=== PATIENT | male | born 1995 | race Caucasian/White ===

== ENCOUNTER 2018-03-30 01:53 | Emergency (ER) | payer OTHER ==
[~2018-03-30] VITALS: Ht 167.6 cm; Wt 65.3 kg
[2018-03-30 02:00] VITALS: TEMP 36.8; Ht 167.6 cm; Wt 65.3 kg
--- NOTE | 2018-03-30 02:01 | EMERGENCY ROOM VISIT NOTE ---
History Report prepared by Sarah: Jesús Norwood Under the Supervision of: Dr. Tanya Kerr D.O. First contact with patient: 01:56 Stated Complaint: ALCOHOL History of Present Illness The patient is a 23 year old male who presents to the Emergency Room with complaints of an episode of alcohol intoxication occurring tonight. Per EMS, the patient was stopped by [employer] [facility]. He notes that the patient appeared visibly intoxicated and he reports that the patient seemed like he was going to fall down because he was leaning backwards as he was walking. He states that police attempted to have the patient call a sober friend, but notes that the patient was only able to stare at his phone screen without calling any friends. He notes that he has been in the emergency department before for alcohol intoxication. He denies any drug use and trauma tonight. HPI limited secondary to alcohol intoxication. Source of History: patient, EMS History Limited By: intoxication (alcohol) Onset: tonight Position: other (global) Quality: other (alcohol intoxication) Timing: other (an episode) Note: The patient denies any trauma. Review of Systems ROS limited secondary to alcohol intoxication. Past Medical & Surgical Medical Problems: (1) No chronic problems Family History No pertinent family history Social History Smoking Status: Never Smoker Alcohol Use: heavy Marital Status: single Housing Status: lives with roommate Occupation Status: [employer] student Current/Historical Medications Unable to Obtain Active Prescriptions or Reported Meds Allergies Coded Allergies: No Known Allergies (Unverified , 08/06/16) Physical Exam Vital Signs Date Time Temp Pulse Resp B/P (MAP) Pulse Ox O2 Delivery O2 Flow Rate FiO2 03/30/18 06:53 88 17 115/68 97 03/30/18 06:14 90 17 115/68 97 Room Air 03/30/18 05:45 99 03/30/18 05:00 84 14 109/62 94 Room Air 03/30/18 04:00 103 16 118/64 98 Room Air 03/30/18 03:00 95 14 128/67 97 Room Air 03/30/18 02:30 59 03/30/18 02:01 100 03/30/18 02:00 36.8 101 12 126/89 96 Room Air 03/30/18 02:00 Room Air Physical Exam General: Cooperative, smells of alcohol. HEENT: Head - normocephalic and atraumatic Pupils are 8mm and sluggishly reactive. Extraocular eye muscles are intact, and sclera are anicteric. Nose - moist nasal mucosa without discharge. Mouth - moist buccal mucosa. Oropharynx is nonerythematous and there is no tonsillar exudate or edema noted. Neck: Supple; no JVD, nuchal rigidity, cervical lymphadenopathy. Heart: Regular rhythm and tachycardic. There is a normal S1 and S2 with no murmurs, clicks, or gallops appreciated. Lungs: Clear to auscultation bilaterally with no wheezes, rales, or rhonchi. Abdomen: Soft, completely nontender, nondistended, with good bowel sounds. There are no palpable pulsatile masses or hepatosplenomegaly. There is no guarding, rigidity, or rebound noted. Extremities: No evidence of cyanosis, clubbing, or edema. There are easily palpable peripheral pulses. Skin: warm and dry with good turgor and no rashes. Medical Decision & Procedures Laboratory Results 03/30/18 02:12 Test 03/30/18 02:12 Anion Gap 7.0 mmol/L (3-11) Est Creatinine Clear Calc Drug Dose 88.6 ml/min Estimated GFR () 100.6 Estimated GFR (Non- 86.8 BUN/Creatinine Ratio 16.2 (10-20) Calcium Level 8.5 mg/dl (8.5-10.1) Ethyl Alcohol mg/dL 272.0 mg/dl (0-3) Laboratory results per my review. Medications Administered Medications (Trade) Dose Ordered Sig/Paco Route Start Time Stop Time Status Last Admin Dose Admin Potassium Chloride (Klor-Con M10) 20 meq STK-MED ONCE .ROUTE 03/30/18 06:06 03/30/18 06:07 DC 03/30/18 06:12 20 MEQ Procedure Potassium Chloride 20meq PO ED Course 0153: Past medical records reviewed. The patient was evaluated in room A11. A complete history and physical exam was performed. The patient was placed in the prone position to avoid aspiration. They were observed on the cardiac/vascular sonographer and pulse oximeter. Labs were drawn as above 0525: Potassium Chloride 20meq PO 0340: I reevaluated the patient. He is sound asleep and is hemodynamically stable. 0612: I rechecked the patient. He is currently getting his potassium and is trying to call a sober friend. 0646: I spoke to one of the patient's friends who will watch over him. 0653: Upon reevaluation, the patient is stable and with a friend. I discussed findings and results with him. He verbalized agreement of the treatment plan. The patient was discharged home. Medical Decision The patient is a 23 year old male who presents to the Emergency Room with complaints of an episode of alcohol intoxication occurring tonight. Differential diagnoses include: alcohol overdose, drug intoxication, hypoglycemia, and head injury. Lab Results Show: Alcohol 272. Potassium 3.1. BUN 19. Creatinine 1.1. Glucose 110. The patient was brought to the emergency department after consuming too much alcohol. There were no obvious signs of trauma or complaints of pain. They were observed closely throughout the night and remained stable while here in the ER. The patient was allowed time to sober up prior to discharge. I had a conversation with the patient about the hazards of such excessive alcohol use. I spent some time talking to the patient about this alcohol overdose. This is a repeat visit for him. He denies being an alcoholic. I have asked the patient to increase his potassium intake. Medication Reconcilliation Current Medication List: was personally reviewed by me Blood Pressure Screening Patient's blood pressure: Normal blood pressure Blood pressure disposition: Did not require urgent referral Impression Primary Impression: Alcohol overdose Additional Impression: Hypokalemia Scribe Attestation The scribe's documentation has been prepared under my direction and personally reviewed by me in its entirety. I confirm that the note above accurately reflects all work, treatment, procedures, and medical decision making performed by me. Departure Information Dispostion Home / Self-Care Prescriptions Unable to Obtain Active Prescriptions or Reported Meds Referrals No Doctor, Assigned (PCP) Forms HOME CARE DOCUMENTATION FORM, IMPORTANT VISIT INFORMATION Patient Instructions [facility] [employer] Additional Instructions Avoid such excessive alcohol use in the future. Tylenol 650 mg every 6 hours for headache. Drink plenty of fluids and take a bland diet today. Return to the emergency department for worsening symptoms or any medical concerns. Problem Qualifiers Primary Impression: Alcohol overdose Encounter type: initial encounter Injury intent: accidental or unintentional Qualified Codes: T51.91XA - Toxic effect of unspecified alcohol , accidental (unintentional), initial encounter
[2018-03-30 02:52] LABS: CALCIUM 8.5 mg/dl (8.5-10.1); CREATININE 1.19 mg/dl (0.60-1.40); POTASSIUM 3.1 mmol/L (3.5-5.1)
[2018-03-30] MEDS ORDERED: POTASSIUM CHLORIDE 20 MEQ TABCR PO STA (05:25)
[2018-03-30] MEDS ORDERED: POTASSIUM CHLORIDE 10 MEQ TABCR ONE (06:06)
[2018-03-30 06:53] VITALS: BP 115/68; PULSE 88; O2SAT 97
== END 2018-03-30 06:54 | disposition home or self-care (01) ==
LOC: EDBD 01:53 → C.EDA 01:55
DX: F10.129 Alcohol abuse with intoxication, unspecified (principal); E87.6 Hypokalemia; Y90.8 Blood alcohol level of 240 mg/100 ml or more